=== PATIENT | male | born 1975 ===

== ENCOUNTER 2017-12-23 02:56 | Emergency (ER) | payer MEDICAID ==
[2017-12-23] MEDS ORDERED: LORazepam 2 MG/ML SDV IVPUSH ONE (03:07)
[2017-12-23] MEDS ORDERED: Pantoprazole 40 MG Vial IVPUSH ONE (03:07)
[2017-12-23] MEDS ORDERED: Sodium Chloride 0.9% 1,000 ML IV ONE (03:07)
--- NOTE | 2017-12-23 03:10 | EDM.PDOC ---
ED HPI GENERAL MEDICAL PROBLEM - General Stated Complaint: DIABETES PROBLEM Time Seen by Provider: 12/23/17 03:08 Source of Information: Reports: Patient - History of Present Illness INITIAL COMMENTS - FREE TEXT/NARRATIVE: HISTORY AND PHYSICAL: History of present illness: []Patient with anxiety, GERD and recent diabetes diagnosis presents with chest tightness no radiation arm neck or jaw no shortness of breath or diaphoresis, patient appears quite anxious on arrival he rated chest tightness 8 out of 10 on arrival however with discussion and exam and glucose results and EKG and reassurance patients chest tightness improved to a 2 out of 10. Patient became much more calm and pain/tightness resolved with Ativan No fever nausea vomiting chills sweats no shortness breath headache dizziness palpitation no bowel or urine symptoms Review of systems: As per history of present illness and below otherwise all systems reviewed and negative. Past medical history: As per history of present illness and as reviewed below otherwise noncontributory. Surgical history: As per history of present illness and as reviewed below otherwise noncontributory. Social history: No reported history of drug or alcohol abuse. Family history: As per history of present illness and as reviewed below otherwise noncontributory. Physical exam: HEENT: Atraumatic, normocephalic, pupils reactive, negative for conjunctival pallor or scleral icterus, mucous membranes moist, throat clear, neck supple, nontender, trachea midline. Lungs: Clear to auscultation, breath sounds equal bilaterally, chest nontender. Heart: S1S2, regular, negative for clicks, rubs, or JVD. Abdomen: Soft, nondistended, nontender. Negative for masses or hepatosplenomegaly. Negative for costovertebral tenderness. Pelvis: Stable nontender. Genitourinary: Deferred. Rectal: Deferred. Extremities: Atraumatic, negative for cords or calf pain. Neurovascular unremarkable. Neuro: Awake, alert, oriented. Cranial nerves II through XII unremarkable. Cerebellum unremarkable. Motor and sensory unremarkable throughout. Exam nonfocal. Diagnostics: [CBC CMP UA troponin lipase EKG Chest 1 view] Accu-Chek 91 on arrival Therapeutics: [1 L normal saline bolus Proton X 80 mg IV Lorazepam 1 mg IV ] Stop metformin secondary to creatinine 1.8 Glucotrol 10 mg by mouth daily #10 no refil Patient has an appointment with his primary care in [place] where he lives on Monday for a preop physical leg and recheck creatinine at that time and consider medication adjustments l Impression: [ anxiety Renal insufficiency chronic history of baseline ] Definitive disposition and diagnosis as appropriate pending reevaluation and review of above. Chest Pain Score (Numeric/FACES): 2 - Related Data Allergies Allergy/AdvReac Type Severity Reaction Status Date / Time laundry detergent Allergy Hives Uncoded 12/23/17 03:08 Home Meds: Home Meds Omeprazole [priLOSEC OTC] 20 mg PO DAILY 09/09/17 [History] Ranitidine HCl [Zantac] 150 mg PO DAILY PRN 09/09/17 [History] Lisinopril 10 mg PO DAILY 12/23/17 [History] atorvaSTATin [Lipitor] 20 mg PO BEDTIME 12/23/17 [History] metFORMIN HCl [Metformin HCl] 1,000 mg PO BID 12/23/17 [History] Past Medical History - Past Health History Medical/Surgical History: Denies Medical/Surgical History HEENT History: Reports: Cataract, Other (See Below) Other HEENT History: Mytopia - Past Surgical History HEENT Surgical History: Reports: Other (See Below) Other HEENT Surgeries/Procedures: Cyst removed in jaw Social & Family History - Family History Family Medical History: Noncontributory - Caffeine Use Caffeine Use: Reports: None Other Caffeine Use: Quit caffeine 2 weeks ago. Was drinking coffee and pops daily. ED ROS GENERAL - Review of Systems Review Of Systems: See Below ED EXAM, GENERAL - Physical Exam Exam: See Below Course - Vital Signs Last Recorded V/S: Last Vital Signs Temp 97.5 F 12/23/17 03:03 Pulse 85 12/23/17 03:18 Resp 18 12/23/17 03:18 BP 118/78 12/23/17 03:18 Pulse Ox 99 12/23/17 03:18 - Orders/Labs/Meds Orders: Active Orders 24 hr Category Date Time Status EKG Documentation Completion [RC] STAT Care 12/23/17 03:08 Active Chest 1V Frontal [CR] Stat Exams 12/23/17 03:08 Taken UA W/MICROSCOPIC [URIN] Stat Lab 12/23/17 04:17 Ordered Labs: Laboratory Tests 12/23/17 12/23/17 12/23/17 Range/Units 03:02 03:05 03:05 WBC 10.17 (4.0-11.0) K/uL RBC 5.43 (4.50-5.90) M/uL Hgb 16.2 (13.0-17.0) g/dL Hct 45.8 (38.0-50.0) % MCV 84.3 (80.0-98.0) fL MCH 29.8 (27.0-32.0) pg MCHC 35.4 (31.0-37.0) g/dL RDW Std Deviation 37.7 (28.0-62.0) fl RDW Coeff of Gordon 12 (11.0-15.0) % Plt Count 225 (150-400) K/uL MPV 10.10 (7.40-12.00) fL Neut % (Auto) 54.6 (48.0-80.0) % Lymph % (Auto) 37.7 (16.0-40.0) % Sumter % (Auto) 6.6 (0.0-15.0) % Eos % (Auto) 0.9 (0.0-7.0) % Baso % (Auto) 0.2 (0.0-1.5) % Neut # (Auto) 5.6 (1.4-5.7) K/uL Lymph # (Auto) 3.8 H (0.6-2.4) K/uL Sumter # (Auto) 0.7 (0.0-0.8) K/uL Eos # (Auto) 0.1 (0.0-0.7) K/uL Baso # (Auto) 0.0 (0.0-0.1) K/uL Nucleated RBC % 0.0 /100WBC Nucleated RBCs # 0 K/uL Sodium 140 (136-148) mmol/L Potassium 3.9 (3.5-5.1) mmol/L Chloride 102 (98-107) mmol/L Carbon Dioxide 25.0 (21.0-32.0) mmol/L BUN 24 H (7.0-18.0) mg/dL Creatinine 1.8 H (0.8-1.3) mg/dL Est Cr Clr Drug Dosing 63.24 mL/min Estimated GFR (MDRD) 41.4 ml/min Glucose 130 H (74-106) mg/dL POC Glucose 95 (60-110) mg/dL Calcium 9.6 (8.5-10.1) mg/dL Total Bilirubin 0.8 (0.2-1.0) mg/dL AST 17 (15-37) IU/L ALT 28 (14-63) IU/L Alkaline Phosphatase 86 (46-116) U/L Troponin I < 0.050 (0.000-0.056) ng/mL Total Protein 7.6 (6.4-8.2) g/dL Albumin 4.4 (3.4-5.0) g/dL Globulin 3.2 (2.0-3.5) g/dL Albumin/Globulin Ratio 1.4 (1.3-2.8) Lipase 253 (73-393) U/L Urine Color Urine Appearance Urine pH (5.0-8.0) Ur Specific Datil (1.001-1.035) Urine Protein (NEGATIVE) mg/dL Urine Glucose (UA) (NEGATIVE) mg/dL Urine Ketones (NEGATIVE) mg/dL Urine Occult Blood (NEGATIVE) Urine Nitrite (NEGATIVE) Urine Bilirubin (NEGATIVE) Urine Urobilinogen (<2.0) EU/dL Ur Leukocyte Esterase (NEGATIVE) Urine RBC (0-2/HPF) Urine WBC (0-5/HPF) Ur Epithelial Cells (NONE-FEW) Urine Bacteria (NEGATIVE) 12/23/17 Range/Units 04:17 WBC (4.0-11.0) K/uL RBC (4.50-5.90) M/uL Hgb (13.0-17.0) g/dL Hct (38.0-50.0) % MCV (80.0-98.0) fL MCH (27.0-32.0) pg MCHC (31.0-37.0) g/dL RDW Std Deviation (28.0-62.0) fl RDW Coeff of Gordon (11.0-15.0) % Plt Count (150-400) K/uL MPV (7.40-12.00) fL Neut % (Auto) (48.0-80.0) % Lymph % (Auto) (16.0-40.0) % Sumter % (Auto) (0.0-15.0) % Eos % (Auto) (0.0-7.0) % Baso % (Auto) (0.0-1.5) % Neut # (Auto) (1.4-5.7) K/uL Lymph # (Auto) (0.6-2.4) K/uL Sumter # (Auto) (0.0-0.8) K/uL Eos # (Auto) (0.0-0.7) K/uL Baso # (Auto) (0.0-0.1) K/uL Nucleated RBC % /100WBC Nucleated RBCs # K/uL Sodium (136-148) mmol/L Potassium (3.5-5.1) mmol/L Chloride (98-107) mmol/L Carbon Dioxide (21.0-32.0) mmol/L BUN (7.0-18.0) mg/dL Creatinine (0.8-1.3) mg/dL Est Cr Clr Drug Dosing mL/min Estimated GFR (MDRD) ml/min Glucose (74-106) mg/dL POC Glucose (60-110) mg/dL Calcium (8.5-10.1) mg/dL Total Bilirubin (0.2-1.0) mg/dL AST (15-37) IU/L ALT (14-63) IU/L Alkaline Phosphatase (46-116) U/L Troponin I (0.000-0.056) ng/mL Total Protein (6.4-8.2) g/dL Albumin (3.4-5.0) g/dL Globulin (2.0-3.5) g/dL Albumin/Globulin Ratio (1.3-2.8) Lipase (73-393) U/L Urine Color YELLOW Urine Appearance CLEAR Urine pH 5.5 (5.0-8.0) Ur Specific Datil 1.020 (1.001-1.035) Urine Protein NEGATIVE (NEGATIVE) mg/dL Urine Glucose (UA) NEGATIVE (NEGATIVE) mg/dL Urine Ketones 15 H (NEGATIVE) mg/dL Urine Occult Blood NEGATIVE (NEGATIVE) Urine Nitrite NEGATIVE (NEGATIVE) Urine Bilirubin NEGATIVE (NEGATIVE) Urine Urobilinogen 0.2 (<2.0) EU/dL Ur Leukocyte Esterase NEGATIVE (NEGATIVE) Urine RBC 0-1 (0-2/HPF) Urine WBC 0-1 (0-5/HPF) Ur Epithelial Cells RARE (NONE-FEW) Urine Bacteria FEW (NEGATIVE) Meds: Medications Discontinued Medications Generic Name Dose Route Start Last Admin Trade Name Gavin PRN Reason Stop Dose Admin Sodium Chloride 1,000 mls @ 999 mls/hr 12/23/17 03:07 12/23/17 03:15 Normal Saline IV 12/23/17 04:07 999 mls/hr STAT ONE Administration Lorazepam 1 mg 12/23/17 03:07 12/23/17 03:15 Ativan IVPUSH 12/23/17 03:08 1 mg ONETIME ONE Administration Pantoprazole Sodium 80 mg 12/23/17 03:07 12/23/17 03:18 Protonix Iv IVPUSH 12/23/17 03:08 80 mg .BOLUS ONE Administration Departure - Departure Time of Disposition: 04:35 Disposition: Home, Self-Care 01 Condition: Good Clinical Impression: Anxiety, Renal insufficiency, Diabetes - Discharge Information Additional Instructions: Medication as prescribed Stop metform Fluid hydration as discussed over the weekend Follow-up with your primary care on Monday as scheduled and recheck renal function Consider medication adjustment keep a glucose log for your primary care The following information is given to patients seen in the emergency department who are being discharged to home. This information is to outline your options for follow-up care. We provide all patients seen in our emergency department with a follow-up referral. The need for follow-up, as well as the timing and circumstances, are variable depending upon the specifics of your emergency department visit. If you don't have a primary care physician on staff, we will provide you with a referral. We always advise you to contact your personal physician following an emergency department visit to inform them of the circumstance of the visit and for follow-up with them and/or the need for any referrals to a consulting specialist. The emergency department will also refer you to a specialist when appropriate. This referral assures that you have the opportunity for follow-up care with a specialist. All of these measure are taken in an effort to provide you with optimal care, which includes your follow-up. Under all circumstances we always encourage you to contact your private physician who remains a resource for coordinating your care. When calling for follow-up care, please make the office aware that this follow-up is from your recent emergency room visit. If for any reason you are refused follow-up, please contact the [facility] emergency department at and asked to speak to the emergency department charge nurse. - My Orders Last 24 Hours: My Active Orders 12/23/17 03:08 EKG Documentation Completion [RC] STAT Chest 1V Frontal [CR] Stat 12/23/17 04:17 UA W/MICROSCOPIC [URIN] Stat - Assessment/Plan Last 24 Hours: My Active Orders 12/23/17 03:08 EKG Documentation Completion [RC] STAT Chest 1V Frontal [CR] Stat 12/23/17 04:17 UA W/MICROSCOPIC [URIN] Stat
[2017-12-23 03:46] LABS: CHLORIDE,CL 102 mmol/L (98-107); SODIUM,NA 140 mmol/L (136-148)
--- NOTE | 2017-12-25 12:45 | CR ---
EXAM DATE: 12/23/17 PATIENT'S AGE: 42 Patient: MAGAN WHITTINGTON Facility: [place], [place] Site . Site : 1975 Study: XRay Chest [id number]/9/2018 3:35:41 AM Ordering Physician: Jevon Muñoz Final Report: Indication: Pain. Shortness of breath Technique: Chest 1 view Comparison: None Findings/Impression: Cardiovascular and mediastinum: Heart size and vasculature are normal in caliber and appearance. Mediastinum is within normal limits. Lungs and pleural space: Lungs are clear. No sign of infiltrate or mass. No sign of pleural effusion. No pneumothorax. Bones and soft tissues: No significant findings. Dictated by Ishaan Schwartz MD @ 12/23/2017 4:20:47 AM Dictated by: Ishaan Schwartz MD @ 12/23/2017 04:20:53 (Electronic Signature) Report Signed by Proxy. [email or web address]
== END 2017-12-23 04:45 | disposition home or self-care (01) ==
LOC: MW.ED 02:56
DX: E11.9 Type 2 diabetes mellitus without complications (principal); F41.9 Anxiety disorder, unspecified; N28.9 Disorder of kidney and ureter, unspecified; K21.9 Gastro-esophageal reflux disease without esophagitis; Z79.84 Long term (current) use of oral hypoglycemic drugs; Z79.899 Other long term (current) drug therapy; Z91.09 Other allergy status, other than to drugs and biological substances
CPT/HCPCS: 36415; 71045; 80053; 81001; 82962; 83690; 84484; 85025; 93005; 96361; 96374; 96375; 99285; C9113; J2060; J7040; 99283